=== PATIENT | female | born 1975 | race Caucasian/White ===

== ENCOUNTER 2017-11-19 10:55 | Emergency (ER) | payer OTHER ==
[~2017-11-19] VITALS: Ht 170.2 cm; Wt 77.1 kg
--- NOTE | ~2017-11-19 | EKG ---
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
== END 2017-11-19 12:27 | disposition home or self-care (01) ==
LOC: ER 10:55
DX: R07.89 Other chest pain (principal); M25.552 Pain in left hip; M25.551 Pain in right hip